=== PATIENT | male | born 1990 | race Caucasian/White ===

== ENCOUNTER 2017-11-30 12:35 | Emergency (ER) | payer SELFPAY ==
[~2017-11-30] VITALS: Ht 172.7 cm; Wt 76.2 kg
--- NOTE | 2017-11-30 12:35 | NUR ---
Patient BIB [facility] for pre-booking medical evaluation, transferred to chair E. RN evaluating patient.
[2017-11-30 12:39] VITALS: BP 142/103
--- NOTE | 2017-11-30 12:45 | NUR ---
[place] [facility] FOR PREBOOK WITH C/O RT PINK EYE AND RT ANKLE PAIN X 1 WK; AMBULATING WITHOUT DIFFICULTY HX; DENIES RX; DENIES
[2017-11-30] MEDS ORDERED: KETOROLAC 60 MG/2 ML VIAL IM ONE (12:55)
[2017-11-30] MEDS ORDERED: diphenhydrAMINE 50 MG/ML VIAL IM ONE (12:55)
[2017-11-30 13:20] VITALS: BP 142/103
--- NOTE | 2017-11-30 13:20 | NUR ---
PATIENT [facility] [employer]. PATIENT EXAMINED BY DR. CARR. PATIENT MEDICALLY CLEARED AND RELEASED IN CUSTODY IN STABLE CONDITION. ORIGINAL PRE-BOOK FORM GIVEN TO OFFICER Mekhi MOODY.
== END 2017-11-30 13:20 ==
LOC: MED 12:35
DX: H57.8 Other specified disorders of eye and adnexa (principal); Z02.89 Encounter for other administrative examinations
CPT/HCPCS: 96372; 99284; J1200; J1885

== ENCOUNTER 2020-07-01 15:46 | Emergency (ER) | payer SELFPAY ==
[~2020-07-01] VITALS: Ht 170.2 cm; Wt 89.8 kg
[2020-07-01 15:50] VITALS: BP 152/96
--- NOTE | 2020-07-01 15:52 | NUR ---
AMBULATED TO BED 7
--- NOTE | 2020-07-01 17:06 | NUR ---
Patient discharged with v/s stable, AAOX4, IN NAD. Written and verbal after care instructions given and explained. Patient alert, oriented and verbalized understanding of instructions. Ambulatory with steady gait. All questions addressed prior to discharge. ID band removed, NO IV ACCESS THIS VISIT. Patient advised to follow up with PMD. Rx of VALIUM, IBUPROFEN given. Patient educated on indication of medication including possible reaction and side effects. Opportunity to ask questions provided and answered. PT IN AGREEMENT WITH PLAN OF CARE.
== END 2020-07-01 17:06 | disposition home or self-care (01) ==
LOC: MED 15:46
DX: M54.5 Low back pain (principal)
CPT/HCPCS: 99283

== ENCOUNTER 2020-08-05 13:46 | Emergency (ER) | payer SELFPAY ==
[~2020-08-05] VITALS: Ht 167.6 cm; Wt 81.6 kg
[2020-08-05 13:57] VITALS: BP 174/111
[2020-08-05 15:16] LABS: APPEARANCE,URINE SL CLOUDY (CLEAR); BILIRUBIN,URINE NEGATIVE (NEGATIVE); BLOOD, URINE NEGATIVE (NEGATIVE); COLOR,URINE YELLOW (YELLOW); LEUKOCYTE ESTERASE ,URINE 2+ (NEGATIVE); NITRITE, URINE NEGATIVE (NEGATIVE); UGLUCOSE NEGATIVE (NEGATIVE)
--- NOTE | 2020-08-05 15:16 | NUR ---
Trish guerrier in [facility] - 08/05/20 at 1518 by [email or web address] PT AMB TO BED 12.
--- NOTE | 2020-08-05 15:18 | NUR ---
PT AMB TO BED 9
--- NOTE | 2020-08-05 15:29 | NUR ---
30/M BIB SELF C/O PENILE DISCHARGE: GREEN , COUGH, SORE THROAT X 2 WEEKS & C/O LOWER BACK PAIN X 2 MONTHS. DENIES DYSURIA. UNPROTECTED SEX. PMH: DENIES
[2020-08-05] MEDS ORDERED: NACL 0.9% 500 ML IV SCH (15:30)
[2020-08-05] MEDS ORDERED: KETOROLAC 30 MG/ML VIAL IVP ONE (15:30)
--- NOTE | 2020-08-05 15:31 | NUR ---
DURING IV INSERTION, PT STATED THAT HE SHOOTS UP HEROIN. PT ALSO USES METH AND MARIJUANA. LAST USE X2 DAYS AGO.
[2020-08-05 15:36] LABS: RBC,URINE 0-5 /HPF (0-5); WBC,URINE TOO MANY TO COUNT /HPF (0-5)
[2020-08-05 15:49] LABS: BASOPHILS # (AUTO) 0.1 K/uL (0.00-0.22); BASOPHILS % (AUTO) 0.6 % (0.0-2.0); EOSINOPHILS # (AUTO) 0.3 K/uL (0-0.4); EOSINOPHILS % (AUTO) 2.5 % (0.0-4.0); HEMATOCRIT 46.2 % (36-52); HEMOGLOBIN 15.2 g/dL (12.0-18.0); LYMPHOCYTES # (AUTO) 2.5 K/uL (2.0-11.5); LYMPHOCYTES % (AUTO) 19.5 % (20.5-51.1); MEAN CORPUSCULAR HEMOGLOBIN 28 pg (27-31); MEAN CORPUSCULAR HGB CONC 33 g/dL (33-37); MONOCYTES # (AUTO) 0.9 K/uL (0.8-1.0); MONOCYTES % (AUTO) 7.2 % (1.7-9.3); NEUTROPHILS # (AUTO) 8.9 K/uL (1.8-7.7); NEUTROPHILS % (AUTO) 70.2 % (42.2-75.2); PLATELET COUNT (AUTO) 452 K/uL (140-450); RED BLOOD CELL COUNT(AUTO) 5.38 MIL/uL (4.20-6.10); RED CELL DISTRIBUTION WIDTH 12.6 % (11.6-13.7); WHITE BLOOD COUNT (AUTO) 12.7 K/uL (4.8-10.8)
--- NOTE | 2020-08-05 15:53 | NUR ---
PT TAKEN TO CT VIA [facility]
[2020-08-05 15:58] LABS: ANION GAP 10.4 (8-16); CARBON DIOXIDE 26.4 mmol/L (21-32); CREATININE 0.8 mg/dL (0.6-1.3); POTASSIUM 3.8 mmol/L (3.5-5.1); TOTAL BILIRUBIN 0.4 mg/dL (0.0-1.0)
--- NOTE | 2020-08-05 16:09 | NUR ---
PATIENT RETURNED FROM CT VIA [facility]
[2020-08-05 16:11] LABS: CANNABINOID, URINE POSITIVE ng/mL (NEG <=50); PHENCYCLIDINE SCREEN,URINE POSITIVE ng/mL (NEG <=25)
[2020-08-05 16:12] LABS: BARBITURATE, URINE NEGATIVE ng/ml (NEG <=200); BENZODIAZEPINE, URINE NEGATIVE ng/mL (NEG <=200); COCAINE, URINE NEGATIVE ng/mL (NEG <=300); OPIATE, URINE POSITIVE ng/mL (NEG <=2000)
[2020-08-05 16:22] LABS: PROTHROMBIN TIME 12.8 secs (10.8-13.4)
[2020-08-05 16:37] LABS: ACETAMINOPHEN < 0.5 ug/ml (10-30); SALICYLATE < 2.8 mg/dL (2.8-20.0)
[2020-08-05] MEDS ORDERED: AZITHROMYCIN 250 MG TAB PO ONE (17:05)
--- NOTE | 2020-08-05 17:10 | NUR ---
pt laying in bed with even and unlabored respirations. vss. will continue to monitor
[2020-08-05] MEDS ORDERED: IBUP-2213 PO (17:18)
[2020-08-05] MEDS ORDERED: METH-1681 PO (17:18)
[2020-08-05] MEDS ORDERED: cefTRIAXone 1,000 MG VIAL ONE (17:22)
[2020-08-05 18:13] VITALS: BP 144/103
--- NOTE | 2020-08-05 18:13 | NUR ---
Patient discharged with v/s stable. Written and verbal after care instructions given and explained. Patient alert, oriented and verbalized understanding of instructions. Ambulatory with steady gait. All questions addressed prior to discharge. ID band removed. Patient advised to follow up with PMD. Rx of ibuprofen and methocarbamol given. Patient educated on indication of medication including possible reaction and side effects. Opportunity to ask questions provided and answered.
== END 2020-08-05 18:13 | disposition home or self-care (01) ==
LOC: MED 13:46
DX: N39.0 Urinary tract infection, site not specified (principal); F19.10 Other psychoactive substance abuse, uncomplicated; F17.210 Nicotine dependence, cigarettes, uncomplicated; Z79.899 Other long term (current) drug therapy
CPT/HCPCS: 36415; 71045; 72131; 80053; 80305; 81001; 83605; 83880; 84484; 85025; 85610; 85730; 86592; 87040; 87086; 93005; 96361; 96365; 96375; 99285; G0480; G0482; J0696; J1885; J7030; 87491

== ENCOUNTER 2020-11-06 21:42 | Emergency (ER) | payer MEDICAID ==
[~2020-11-06] VITALS: Ht 167.6 cm; Wt 81.6 kg
[~2020-11-06 21:42] MED LIST: IBUP-2213 PO; METH-1681 PO
[2020-11-06 21:45] VITALS: BP 155/102
--- NOTE | 2020-11-06 21:45 | NUR ---
TO BED AMBULATORY
--- NOTE | 2020-11-06 22:26 | NUR ---
URINE SPECIMEN COLLECTED AND GIVEN TO [facility] TEST LEAD APPLICATION TESTING
[2020-11-06 22:39] LABS: APPEARANCE,URINE CLEAR (CLEAR); BILIRUBIN,URINE NEGATIVE (NEGATIVE); BLOOD, URINE TRACE-I (NEGATIVE); COLOR,URINE YELLOW (YELLOW); LEUKOCYTE ESTERASE ,URINE 1+ (NEGATIVE); NITRITE, URINE NEGATIVE (NEGATIVE); UGLUCOSE NEGATIVE (NEGATIVE)
[2020-11-06 22:44] LABS: RBC,URINE 0-5 /HPF (0-5); WBC,URINE 20-60 /HPF (0-5)
--- NOTE | 2020-11-06 22:58 | NUR ---
PATIENT AMBULATED TO BED 7 WITH STEADY GAIT.
--- NOTE | 2020-11-06 23:00 | NUR ---
30/M BIB SELF COMPLAINING OF PRESSURE PAIN ON HIS UPPER AND LOWER BACK /10, PENILE DISCHARGE, AND BLE EDEMA WHICH ALL STARTED A WEEK AGO. PT DENIES ANY FEVER, CHILLS, DIARRHEA, PAINFUL URINATION. PMH: DENIES NKDA
--- NOTE | 2020-11-06 23:22 | NUR ---
DR. SUBRAMANIAN AT BEDSIDE EXAMINING PATIENT
[2020-11-06] MEDS ORDERED: HYDROcodone/APAP 5/325 MG 1 TAB TAB PO ONE (23:30)
[2020-11-06] MEDS ORDERED: KETOROLAC 15 MG/ML VIAL IM ONE (23:30)
--- NOTE | 2020-11-06 23:36 | NUR ---
Trish guerrier in ED - 11/06/20 at 2339 by KOBI Patient discharged with v/s stable. Written and verbal after care instructions given and explained. Patient verbalized understanding. Ambulatory with steady gait. All questions addressed prior to discharge. Advised to follow up with PMD.
[2020-11-06] MEDS ORDERED: LID5T TP (23:57)
[2020-11-06] MEDS ORDERED: MOT200 PO (23:57)
--- NOTE | 2020-11-07 00:13 | NUR ---
Patient discharged with v/s stable. Written and verbal after care instructions given and explained. Patient alert, oriented and verbalized understanding of instructions. Ambulatory with steady gait. All questions addressed prior to discharge. ID band removed. Patient advised to follow up with PMD. Rx of LIDODERM, IBUPROFEN given. Patient educated on indication of medication including possible reaction and side effects. Opportunity to ask questions provided and answered.
[2020-11-07 00:14] VITALS: BP 155/102
--- NOTE | 2020-11-09 10:29 | NUR ---
LATE ENTRY---LAB CALLED WITH RESULTS. POSITIVE GC DNA.
--- NOTE | 2020-11-13 10:49 | NUR ---
LATE ENTRY- Positive Neisseria gonorrhoeae test results were received from lab. Dr. Moyer left a voicemial for the patient.
== END 2020-11-07 00:13 | disposition home or self-care (01) ==
LOC: MED 21:42
DX: G89.29 Other chronic pain (principal); M54.5 Low back pain; F11.90 Opioid use, unspecified, uncomplicated; Z79.899 Other long term (current) drug therapy
CPT/HCPCS: 36415; 81001; 87086; 87491; 96372; 99283; J1885

== ENCOUNTER 2020-11-09 20:29 | Emergency (ER) | payer MEDICAID ==
[~2020-11-09] VITALS: Ht 167.6 cm; Wt 81.6 kg
[~2020-11-09 20:29] MED LIST changes: +LID5T TP; +MOT200 PO
[2020-11-09 20:33] VITALS: BP 150/101
--- NOTE | 2020-11-09 20:33 | NUR ---
TO BED AMBULATORY
--- NOTE | 2020-11-09 21:13 | NUR ---
ERMD AT BEDSIDE.
[2020-11-09] MEDS ORDERED: ACET-8386 PO ×2 (21:18→21:20)
[2020-11-09] MEDS ORDERED: ACET-2619 PO (21:18)
[2020-11-09] MEDS ORDERED: IBUP-2213 PO (21:18)
[2020-11-09] MEDS ORDERED: LID5T TP (21:18)
[2020-11-09] MEDS ORDERED: NALO4SPR NS (21:20)
[2020-11-09] MEDS ORDERED: cefTRIAXone 500 MG in LIDOCAINE MPF 1% 1 ML IM ONE (21:50)
[2020-11-09] MEDS ORDERED: DOXY100T9 PO (21:50)
[2020-11-09] MEDS ORDERED: LIDOCAINE MPF 1% 5 ML ONE (21:55)
[2020-11-09] MEDS ORDERED: cefTRIAXone 500 MG VIAL ONE (21:55)
--- NOTE | 2020-11-09 21:59 | NUR ---
Patient discharged with v/s stable. Written and verbal after care instructions given and explained. Patient alert, oriented and verbalized understanding of instructions. Ambulatory with steady gait. All questions addressed prior to discharge. ID band removed. Patient advised to follow up with PMD. Rx of TYLENOL, IBUPROFEN, NARCAN, NORCO, LIDODERM PATCH, DOXUCYCLINE HYCLATE given. Patient educated on indication of medication including possible reaction and side effects. Opportunity to ask questions provided and answered.
[2020-11-09 22:14] LABS: BILIRUBIN,URINE NEGATIVE (NEGATIVE); BLOOD, URINE NEGATIVE (NEGATIVE); LEUKOCYTE ESTERASE ,URINE 2+ (NEGATIVE); NITRITE, URINE NEGATIVE (NEGATIVE); UGLUCOSE NEGATIVE (NEGATIVE)
[2020-11-09 22:18] LABS: APPEARANCE,URINE HAZY (CLEAR); COLOR,URINE YELLOW (YELLOW)
[2020-11-09 22:25] LABS: RBC,URINE 0-5 /HPF (0-5)
[2020-11-09 22:26] LABS: WBC,URINE 80-100 /HPF (0-5)
== END 2020-11-09 21:59 | disposition home or self-care (01) ==
LOC: MED 20:29
DX: G89.29 Other chronic pain (principal); M54.9 Dorsalgia, unspecified; Z11.3 Encounter for screening for infections with a predominantly sexual mode of transmission; Z79.899 Other long term (current) drug therapy
CPT/HCPCS: 36415; 81001; 87086; 87491; 96372; 99283; J0696; J2001

== ENCOUNTER 2024-01-15 02:45 | Emergency (ER) | payer SELFPAY ==
[~2024-01-15] VITALS: Ht 170.2 cm; Wt 86.2 kg
[~2024-01-15 02:45] MED LIST changes: +ACET-2619 PO; +ACET-8905 PO; +DOXY100T9 PO; +NALO4SPR NS
[2024-01-15 02:51] VITALS: BP 174/123; PULSE 112; RESP 20; TEMP 98.7; O2SAT 98
--- NOTE | 2024-01-15 03:05 | NUR ---
AMBULATORY TO BED 9
[2024-01-15] MEDS ORDERED: LIDOCAINE MPF 1% 5 ML ONE (03:29)
[2024-01-15] MEDS ORDERED: cefTRIAXone 500 MG VIAL ONE (03:29)
--- NOTE | 2024-01-15 03:36 | NUR ---
MEDICATED BY RANDY DAHL , TOLERATED WELL.
[2024-01-15] MEDS: cefTRIAXone 500 MG in LIDOCAINE MPF 1% 1 ML IM ONE (03:37)
[2024-01-15] MEDS: DOXYCYCLINE 100 MG CAP PO ONE (03:37)
[2024-01-15] MEDS ORDERED: DOXY-690 PO (04:26)
--- NOTE | 2024-01-15 04:30 | NUR ---
PATIENT CAN'T URINATE AT THIS TIME ERMD NOTED.
--- NOTE | 2024-01-15 04:46 | NUR ---
URINE WAS SENT TO LAB.
[2024-01-15 05:04] VITALS: BP 154/89; PULSE 81; RESP 17; TEMP 98.6; O2SAT 99
--- NOTE | 2024-01-15 05:04 | NUR ---
Patient discharged with v/s stable. Written and verbal after care instructions given and explained. Patient alert, oriented and verbalized understanding of instructions. Ambulatory with steady gait. All questions addressed prior to discharge. ID band removed. Patient advised to follow up with PMD. Rx of VIBRAMYCIN given. Patient educated on indication of medication including possible reaction and side effects. Opportunity to ask questions provided and answered.
== END 2024-01-15 05:04 | disposition home or self-care (01) ==
LOC: MED 02:45
DX: S83.91XA Sprain of unspecified site of right knee, initial encounter (principal); S90.32XA Contusion of left foot, initial encounter; S60.221A Contusion of right hand, initial encounter; N34.2 Other urethritis; R03.0 Elevated blood-pressure reading, without diagnosis of hypertension; Z79.1 Long term (current) use of non-steroidal anti-inflammatories (NSAID); Z79.899 Other long term (current) drug therapy; X58.XXXA Exposure to other specified factors, initial encounter; Y93.89 Activity, other specified; Y92.89 Other specified places as the place of occurrence of the external cause; Y99.8 Other external cause status
CPT/HCPCS: 29125; 73130; 73562; 73630; 87491; 96372; 99284; J0696; J2001; Q0092